=== PATIENT | male | born 1965 | race Two or more races ===

== ENCOUNTER 2022-12-14 16:00 | Emergency (ER) | payer OTHER ==
[~2022-12-14] VITALS: Ht 175.3 cm; Wt 117.9 kg
[2022-12-14] MEDS ORDERED: ISOSORBIDE MONO60 M2 PO (16:14)
[2022-12-14] MEDS ORDERED: CLONAZEPAM1 MG PO ×2 (16:14→18:41)
[2022-12-14] MEDS ORDERED: HYDROCHLOROTHIA25 MG PO (16:14)
[2022-12-14] MEDS ORDERED: ATORVASTATIN CA40 MG PO (16:14)
[2022-12-14] MEDS ORDERED: METOPROLOL SUC100 MG PO (16:14)
[2022-12-14] MEDS ORDERED: CLOPIDOGREL BIS75 MG PO (16:16)
[2022-12-14] MEDS ORDERED: SERTRALINE HCL50 MG PO (16:16)
[2022-12-14] MEDS ORDERED: VALSARTAN320 MG PO (16:17)
== END 2022-12-14 18:47 | disposition home or self-care (01) ==
LOC: ER 16:00
DX: R07.89 Other chest pain (principal); F41.9 Anxiety disorder, unspecified; I50.9 Heart failure, unspecified; I10 Essential (primary) hypertension

== ENCOUNTER 2023-05-30 21:22 | Emergency (ER) | payer OTHER ==
[~2023-05-30] VITALS: Ht 175.3 cm; Wt 106.6 kg
[~2023-05-30 21:22] MED LIST: ATORVASTATIN CA40 MG PO; CLONAZEPAM1 MG PO; CLOPIDOGREL BIS75 MG PO; HYDROCHLOROTHIA25 MG PO; ISOSORBIDE MONO60 M2 PO; METOPROLOL SUC100 MG PO; SERTRALINE HCL50 MG PO; VALSARTAN320 MG PO
== END 2023-05-30 22:54 | disposition home or self-care (01) ==
LOC: ER 21:22
DX: J32.9 Chronic sinusitis, unspecified (principal)